=== PATIENT | female | born 1930 | race Caucasian/White ===

== ENCOUNTER 2016-11-06 05:39 | Inpatient (IN) | payer MEDICARE ==
[2016-11-04 14:45] VITALS: BP 167/77
[~2016-11-06] VITALS: Ht 154.9 cm; Wt 70.5 kg
[~2016-11-06 05:39] MED LIST: ACET-709 PO; ASPI-496 PO; CLON0.1T PO; FISH OIL PO; FLAX1CAP PO; FLUO60TA PO; FLUT16SP NS; FURO20TA3 PO; GABA300C10 PO; GLUC-88 PO; LEVO137T2 PO; LOSA1TAB16 PO; METH500T7 PO; MULT-516 PO; NAPR220C PO; OMEP40CA6 PO; ONDA4TAB7 PO; POTA10TA12 PO; PROBIOTIC PO; SYNTHROID PO; VITAMIN D3 PO; ZOLP10TA5 PO
[2016-11-06] MEDS ORDERED: BACITRACIN OINT 500U/GM, 15 GM ONE (06:42)
[2016-11-06] MEDS ORDERED: BUPIVACAINE/PF 0.5% ONE (06:43)
[2016-11-06] MEDS ORDERED: THROMBIN 5,000 UNIT VIAL TP ONE (06:43)
[2016-11-06] MEDS ORDERED: BACITRACIN 50,000 UNIT ONE (06:43)
[2016-11-06] MEDS ORDERED: EPINEPHRINE 1 MG/ML, 1ML ONE (06:43)
[2016-11-06] MEDS ORDERED: LACTATED RINGERS 1,000 ML IV SCH (06:45)
[2016-11-06] MEDS ORDERED: LIDOCAINE 1%, 2ML SQ PRN (07:00)
[2016-11-06] MEDS ORDERED: ACET-1600 PO (07:08)
[2016-11-06] MEDS ORDERED: FENTANYL PF 250 MCG/5ML ONE (07:30)
[2016-11-06] MEDS ORDERED: NITROGLYCERIN SINGLE TAB 0.4 MG SL ONE (08:30)
[2016-11-06] MEDS: NITROGLYCERIN 0.4 MG BOTTLE (25 TABS) SL STA ×2 (08:37→08:40)
[2016-11-06] MEDS: NITROGLYCERIN 0.4 MG BOTTLE (25 TABS) SL PRN ×3 (09:16→13:40)
[2016-11-06 11:34] LABS: BLOOD UREA NITROGEN 14 mg/dL (7-18)
[2016-11-06 11:38] LABS: IS PT STATUS REG ER OR PRE ER? YES
[2016-11-06] MEDS ORDERED: NITROGLYCERIN 0.4 MG/SPRAY SL PRN (12:30)
[2016-11-06] MEDS ORDERED: NITROGLYCERIN 0.4 MG BOTTLE (25 TABS) SL PRN (12:30)
[2016-11-06] MEDS ORDERED: LEVO112T2 PO (12:56)
[2016-11-06] MEDS ORDERED: METO25TA35 PO (12:57)
[2016-11-06] MEDS ORDERED: morphine SULFATE 10 MG/ML, 1ML IVPush PRN (13:00)
[2016-11-06] MEDS ORDERED: DOCUSATE 100 MG CAPSULE PO PRN (13:00)
[2016-11-06] MEDS ORDERED: ONDANSETRON 2MG/ML, 2ML IVPush PRN (13:00)
[2016-11-06] MEDS ORDERED: ENOXAPARIN 40 MG/0.4 ML SQ SCH (13:00)
[2016-11-06] MEDS ORDERED: BISACODYL 10 MG SUPP PR PRN (13:00)
[2016-11-06] MEDS ORDERED: POLYETHYLENE GLYCOL 17 GM PACKET PO PRN (13:00)
[2016-11-06] MEDS ORDERED: ENALAPRILAT 1.25 MG/ML, 2ML IVPush PRN ×2 (13:00→19:00)
[2016-11-06 13:08] VITALS: BP 194/74
[2016-11-06] MEDS ORDERED: MAGNESIUM SULFATE PMX 2GM/50ML 50 ML IV ONE (13:30)
[2016-11-06 13:41] VITALS: BP 170/78
[2016-11-06 14:06] VITALS: BP 188/74
[2016-11-06] MEDS ORDERED: hydrALAzine 20 MG/ML, 1ML IV PRN (14:30)
[2016-11-06] MEDS: methylPREDNISolone SOD SUCC 125 MG/2 ML IVPush SCH ×2 (15:08→20:37)
[2016-11-06] MEDS: DIPHENHYDRAMINE 50 MG/ML, 1ML IVPush PRN (15:09)
[2016-11-06] MEDS ORDERED: OMNIPAQUE 350 MG/ML, 75ML BOTTLE ONE (15:49)
[2016-11-06] MEDS ORDERED: METHOCARBAMOL 500 MG TABLET PO PRN (16:00)
[2016-11-06] MEDS ORDERED: METHOCARBAMOL 500 MG TABLET PO SCH ×2 (16:00)
[2016-11-06 16:30] VITALS: BP 148/88
[2016-11-06 19:28] VITALS: BP 145/54
[2016-11-06] MEDS: OMEPRAZOLE 20 MG CAPSULE.DR PO SCH (20:37)
[2016-11-06] MEDS: METOPROLOL TARTRATE 25 MG TABLET PO SCH (20:38)
[2016-11-06] MEDS ORDERED: TEMPLATE NON-FORMULARY MED. (Losartan/Hydrochlorothiazide** (Losartan-Hctz 50-12.5 Mg Tab PO SCH (21:00)
[2016-11-06] MEDS ORDERED: GABAPENTIN 300 MG CAPSULE PO SCH (21:00)
[2016-11-06 21:13] LABS: IS PT STATUS REG ER OR PRE ER? NO
[2016-11-07] MEDS: methylPREDNISolone SOD SUCC 125 MG/2 ML IVPush SCH ×2 (01:42→11:15)
[2016-11-07 03:07] VITALS: BP 164/73
[2016-11-07 05:48] LABS: BLOOD UREA NITROGEN 18 mg/dL (7-18)
[2016-11-07 05:52] LABS: ASPARTATE AMINO TRANSFERASE 15 U/L (15-37)
[2016-11-07] MEDS ORDERED: LEVOTHYROXINE 112 MCG TABLET PO SCH (06:00)
[2016-11-07 06:39] LABS: IS PT STATUS REG ER OR PRE ER? NO
[2016-11-07] MEDS: DIPHENHYDRAMINE 50 MG/ML, 1ML IVPush PRN (06:39)
[2016-11-07] MEDS ORDERED: REGADENOSON 0.4 MG/5 ML SYRINGE ONE (07:48)
[2016-11-07 08:21] VITALS: BP 159/70
[2016-11-07] MEDS ORDERED: HYDROCHLOROTHIAZIDE 12.5 MG CAPSULE PO SCH (09:00)
[2016-11-07] MEDS ORDERED: FLUOXETINE 20 MG CAPSULE PO SCH (09:00)
[2016-11-07] MEDS ORDERED: FLUTICASONE NASAL SPRAY 16GM NAS SCH (09:00)
[2016-11-07] MEDS ORDERED: LOSARTAN 50MG TABLET PO SCH (09:00)
[2016-11-07] MEDS ORDERED: SENNA/DOCUSATE TABLET PO SCH (09:00)
[2016-11-07 11:00] VITALS: BP 126/73
[2016-11-07] MEDS: OMEPRAZOLE 20 MG CAPSULE.DR PO SCH (11:14)
[2016-11-07] MEDS: METOPROLOL TARTRATE 25 MG TABLET PO SCH (11:14)
[2016-11-07] MEDS ORDERED: ENOXAPARIN 30 MG/0.3 ML SQ SCH (13:00)
== END 2016-11-07 19:00 | disposition home or self-care (01) | DRG 292 ==
LOC: OUT 05:39 → SUATTDRO 10:14 → ORIP 10:23 → 5SO 10:32
PROVIDERS: ADMIT Internal Medicine; ATTEND Internal Medicine
DX: I11.0 Hypertensive heart disease with heart failure (principal); J98.11 Atelectasis; Q21.1 Atrial septal defect; R07.89 Other chest pain; I50.32 Chronic diastolic (congestive) heart failure; I45.81 Long QT syndrome; M19.90 Unspecified osteoarthritis, unspecified site; M48.06 Spinal stenosis, lumbar region; E03.9 Hypothyroidism, unspecified; F32.9 Major depressive disorder, single episode, unspecified; F41.9 Anxiety disorder, unspecified; G47.33 Obstructive sleep apnea (adult) (pediatric); G62.9 Polyneuropathy, unspecified; G89.29 Other chronic pain; I08.0 Rheumatic disorders of both mitral and aortic valves; I44.7 Left bundle-branch block, unspecified; M88.9 Osteitis deformans of unspecified bone; Z53.9 Procedure and treatment not carried out, unspecified reason; M54.16 Radiculopathy, lumbar region
CPT/HCPCS: 36415; 71010; 71260; 78452; 80048; 80053; 80061; 83690; 83735; 84100; 84443; 84484; 85025; 87324; 93005; 93017; 93306; J0171; J1650; J2405; J2785; J3010; J3490; Q9967; A9502; C9898; J1200; J2270; J2930; J3475; J7120

== ENCOUNTER 2016-11-12 10:07 | Inpatient (IN) | payer MEDICARE ==
[~2016-11-12] VITALS: Ht 154.9 cm; Wt 71.2 kg
[~2016-11-12 10:07] MED LIST changes: +ACET-1600 PO; +LEVO112T2 PO; +METO25TA35 PO
[2016-11-12] MEDS ORDERED: BACITRACIN 50,000 UNIT ONE (10:33)
[2016-11-12] MEDS ORDERED: THROMBIN 5,000 UNIT VIAL TP ONE (10:33)
[2016-11-12] MEDS ORDERED: BACITRACIN OINT 500U/GM, 15 GM ONE (10:33)
[2016-11-12] MEDS ORDERED: BUPIVACAINE/PF-EPI 0.5% 1:200K ONE ×2 (10:33→14:28)
[2016-11-12] MEDS ORDERED: LACTATED RINGERS 1,000 ML IV SCH (10:52)
[2016-11-12 11:26] VITALS: BP 138/75
[2016-11-12] MEDS ORDERED: FENTANYL PF 250 MCG/5ML ONE (13:15)
[2016-11-12] MEDS ORDERED: MIDAZOLAM 1 MG/ML, 2ML ONE (13:15)
[2016-11-12] MEDS ORDERED: EPHEDRINE 50 MG/ML, 1ML IVPush PRN (14:30)
[2016-11-12] MEDS ORDERED: ALBUTEROL/IPRATROPIUM 2.5MG/0.5MG, 3 ML NPPB PRN (14:30)
[2016-11-12] MEDS ORDERED: MEPERIDINE/PF 25MG/0.5ML IVPush PRN (14:30)
[2016-11-12] MEDS ORDERED: OXYcodone 5 MG/5 ML ORAL.SOL UDC PO PRN (14:30)
[2016-11-12] MEDS ORDERED: ONDANSETRON 2MG/ML, 2ML IVPush PRN (14:30)
[2016-11-12] MEDS ORDERED: FENTANYL PF 100 MCG/2ML IV PRN (14:30)
[2016-11-12] MEDS ORDERED: PROMETHAZINE 25 MG/ML, 1ML IV PRN (14:30)
[2016-11-12] MEDS ORDERED: MIDAZOLAM 1 MG/ML, 2ML IV PRN (14:30)
[2016-11-12] MEDS ORDERED: ACETAMINOPHEN 325 MG TABLET PO PRN (14:30)
[2016-11-12] MEDS ORDERED: FUROSEMIDE 20 MG TABLET PO PRN (16:30)
[2016-11-12] MEDS ORDERED: POTASSIUM CHLORIDE 10 MEQ TABLET.ER PO PRN (16:30)
[2016-11-12] MEDS ORDERED: SENNA/DOCUSATE TABLET PO PRN (16:30)
[2016-11-12] MEDS ORDERED: CODEINE SULFATE 30 MG TABLET PO PRN (16:30)
[2016-11-12] MEDS ORDERED: LABETALOL 5MG/ML, 20ML IVPush PRN (16:30)
[2016-11-12] MEDS ORDERED: PHARMACY MAY ADJ FOR RENAL FX MC PRN (16:30)
[2016-11-12] MEDS: LABETALOL 5MG/ML, 20ML IV PRN ×2 (16:44→17:00)
[2016-11-12] MEDS ORDERED: OXYcodone 5 MG/5 ML ORAL.SOL UDC ONE (16:47)
[2016-11-12] MEDS ORDERED: HYDROmorphone 1 MG/ML, 1ML ONE (16:52)
[2016-11-12] MEDS: HYDROmorphone 1 MG/ML, 1ML IV PRN ×2 (16:57→17:15)
[2016-11-12] MEDS: hydrALAzine 20 MG/ML, 1ML IV PRN ×2 (17:00→17:21)
[2016-11-12] MEDS ORDERED: hydrALAzine 20 MG/ML, 1ML ONE (17:17)
[2016-11-12] MEDS ORDERED: CEFAZOLIN PMX 1GM/50ML 50 ML IVPB SCH (18:30)
[2016-11-12 18:45] VITALS: BP 134/69
[2016-11-12] MEDS: METOPROLOL TARTRATE 25 MG TABLET PO SCH (20:43)
[2016-11-12] MEDS: GABAPENTIN 300 MG CAPSULE PO SCH (20:43)
[2016-11-12] MEDS: FLUOXETINE 20 MG CAPSULE PO SCH (20:44)
[2016-11-12] MEDS ORDERED: TEMPLATE NON-FORMULARY MED. (Losartan/Hydrochlorothiazide** (Losartan-Hctz 50-12.5 Mg Tab PO SCH (21:00)
[2016-11-12] MEDS: SODIUM CHLORIDE FLUSH 10ML SYR IVF SCH (21:00)
[2016-11-12] MEDS: CEFAZOLIN PMX 1GM/50ML 50 ML IVPB SCH (21:30)
[2016-11-12] MEDS: NS + 20MEQ KCL 1,000 ML IV SCH (21:34)
[2016-11-12] MEDS: METHOCARBAMOL 500 MG TABLET PO PRN (22:46)
[2016-11-12] MEDS: ONDANSETRON 4 MG TABLET PO PRN (23:21)
[2016-11-12] MEDS: HYDROcodone/APAP 5/325 TABLET PO PRN (23:21)
[2016-11-13] VITALS: BP 122/55
[2016-11-13] MEDS: HYDROmorphone 1 MG/ML, 1ML IVPush PRN ×4 (01:33→22:34)
[2016-11-13] MEDS: CEFAZOLIN PMX 1GM/50ML 50 ML IVPB SCH (05:30)
[2016-11-13] MEDS: LEVOTHYROXINE 112 MCG TABLET PO SCH (08:30)
[2016-11-13] MEDS: SODIUM CHLORIDE FLUSH 10ML SYR IVF SCH ×2 (08:30→20:06)
[2016-11-13] MEDS ORDERED: DIPHENHYDRAMINE 12.5MG/5ML, 10ML UDC PO PRN (08:30)
[2016-11-13 08:35] VITALS: BP 100/57
[2016-11-13] MEDS: FLUTICASONE NASAL SPRAY 16GM NAS SCH (08:42)
[2016-11-13] MEDS: METOPROLOL TARTRATE 25 MG TABLET PO SCH ×2 (08:42→20:07)
[2016-11-13] MEDS: MULTIVITAMIN 1 TABLET PO SCH (08:43)
[2016-11-13] MEDS: OMEPRAZOLE 20 MG CAPSULE.DR PO SCH (08:43)
[2016-11-13] MEDS: HYDROcodone/APAP 5/325 TABLET PO PRN ×2 (10:49→17:02)
[2016-11-13] MEDS: METHOCARBAMOL 500 MG TABLET PO PRN ×2 (10:49→20:07)
[2016-11-13] MEDS: NS + 20MEQ KCL 1,000 ML IV SCH (12:28)
[2016-11-13] MEDS ORDERED: ONDANSETRON 2MG/ML, 2ML ONE (13:36)
[2016-11-13] MEDS ORDERED: PROPOFOL 10 MG/ML, 50ML ONE (13:36)
[2016-11-13] MEDS ORDERED: DEXAMETHASONE 4 MG/ML, 1ML ONE (13:36)
[2016-11-13] MEDS ORDERED: SUCCINYLCHOLINE 20 MG/ML, 10ML ONE (13:36)
[2016-11-13] MEDS ORDERED: PHENYLEPHRINE 10 MG/ML ONE (13:36)
[2016-11-13] MEDS ORDERED: CEFAZOLIN 1,000 MG ONE (13:36)
[2016-11-13 15:54] VITALS: BP 119/66
[2016-11-13] MEDS: ONDANSETRON 4 MG TABLET PO PRN (17:02)
[2016-11-13 19:47] VITALS: BP 123/65
[2016-11-13] MEDS: GABAPENTIN 300 MG CAPSULE PO SCH (20:07)
[2016-11-13] MEDS: FLUOXETINE 20 MG CAPSULE PO SCH (20:07)
[2016-11-14] MEDS: NS + 20MEQ KCL 1,000 ML IV SCH ×2 (01:25→15:28)
[2016-11-14 02:02] VITALS: BP 133/62
[2016-11-14] MEDS: HYDROmorphone 1 MG/ML, 1ML IVPush PRN (04:39)
[2016-11-14 05:05] LABS: BLOOD UREA NITROGEN 16 mg/dL (7-18)
[2016-11-14] MEDS: METHOCARBAMOL 500 MG TABLET PO PRN (05:44)
[2016-11-14] MEDS: LEVOTHYROXINE 112 MCG TABLET PO SCH (05:45)
[2016-11-14] MEDS ORDERED: SENN1TAB7 PO (07:42)
[2016-11-14] MEDS ORDERED: HYDR-3240 PO (07:42)
[2016-11-14 08:02] VITALS: BP 158/73
[2016-11-14] MEDS: MULTIVITAMIN 1 TABLET PO SCH (08:05)
[2016-11-14] MEDS: METOPROLOL TARTRATE 25 MG TABLET PO SCH ×2 (08:06→21:48)
[2016-11-14] MEDS: OMEPRAZOLE 20 MG CAPSULE.DR PO SCH (08:06)
[2016-11-14] MEDS: HYDROcodone/APAP 5/325 TABLET PO PRN ×4 (08:07→21:52)
[2016-11-14] MEDS: MAGNESIUM HYDROXIDE 8%, 30ML UDC PO PRN (08:10)
[2016-11-14] MEDS: SODIUM CHLORIDE FLUSH 10ML SYR IVF SCH ×2 (09:00→21:50)
[2016-11-14] MEDS: FLUTICASONE NASAL SPRAY 16GM NAS SCH (09:00)
[2016-11-14] MEDS: BISACODYL 10 MG SUPP PR PRN (10:34)
[2016-11-14 15:42] VITALS: BP 133/63
[2016-11-14] MEDS: FLUOXETINE 20 MG CAPSULE PO SCH (21:48)
[2016-11-14] MEDS: GABAPENTIN 300 MG CAPSULE PO SCH (21:48)
[2016-11-14 21:53] VITALS: BP 141/62
[2016-11-15] MEDS: NS + 20MEQ KCL 1,000 ML IV SCH ×3 (00:30→23:00)
[2016-11-15] MEDS: HYDROcodone/APAP 5/325 TABLET PO PRN ×5 (02:14→20:54)
[2016-11-15 03:25] VITALS: BP 109/49
[2016-11-15] MEDS: LEVOTHYROXINE 112 MCG TABLET PO SCH (06:00)
[2016-11-15 07:39] VITALS: BP 166/60
[2016-11-15] MEDS: FLUTICASONE NASAL SPRAY 16GM NAS SCH (09:00)
[2016-11-15] MEDS: MULTIVITAMIN 1 TABLET PO SCH (09:00)
[2016-11-15] MEDS: SODIUM CHLORIDE FLUSH 10ML SYR IVF SCH ×2 (09:00→20:54)
[2016-11-15] MEDS: OMEPRAZOLE 20 MG CAPSULE.DR PO SCH (10:01)
[2016-11-15] MEDS: METOPROLOL TARTRATE 25 MG TABLET PO SCH ×2 (10:02→20:53)
[2016-11-15 13:44] VITALS: BP 132/64
[2016-11-15] MEDS: METHOCARBAMOL 500 MG TABLET PO PRN (13:56)
[2016-11-15 19:48] VITALS: BP 154/62
[2016-11-15] MEDS: GABAPENTIN 300 MG CAPSULE PO SCH (20:53)
[2016-11-15] MEDS: FLUOXETINE 20 MG CAPSULE PO SCH (20:54)
[2016-11-16 01:25] VITALS: BP 139/59
[2016-11-16] MEDS: LEVOTHYROXINE 112 MCG TABLET PO SCH (06:00)
[2016-11-16] MEDS: HYDROcodone/APAP 5/325 TABLET PO PRN ×2 (06:35→10:51)
[2016-11-16] MEDS: NS + 20MEQ KCL 1,000 ML IV SCH (06:38)
[2016-11-16 07:31] VITALS: BP 147/68
[2016-11-16] MEDS: OMEPRAZOLE 20 MG CAPSULE.DR PO SCH (08:02)
[2016-11-16] MEDS: SODIUM CHLORIDE FLUSH 10ML SYR IVF SCH (08:02)
[2016-11-16] MEDS: MULTIVITAMIN 1 TABLET PO SCH (08:02)
[2016-11-16] MEDS: METOPROLOL TARTRATE 25 MG TABLET PO SCH (08:02)
[2016-11-16] MEDS: FLUTICASONE NASAL SPRAY 16GM NAS SCH (08:03)
[2016-11-16] MEDS: MAGNESIUM HYDROXIDE 8%, 30ML UDC PO PRN (08:05)
[2016-11-16] MEDS: BISACODYL 10 MG SUPP PR PRN (10:43)
[2016-11-16 13:00] VITALS: BP 150/77
== END 2016-11-16 13:15 | DRG 519 ==
LOC: OUT 10:07 → ORIP 16:06 → 4NOR 17:50
PROVIDERS: ADMIT Neurological Surgery; ATTEND Neurological Surgery
PROC: 00QT0ZZ Repair Spinal Meninges, Open Approach (ICD-10-PCS; 2016-11-12)
PROC: 00NY0ZZ Release Lumbar Spinal Cord, Open Approach (ICD-10-PCS; principal; 2016-11-12 14:00)
DX: M48.06 Spinal stenosis, lumbar region (principal); G96.11 Dural tear; I10 Essential (primary) hypertension; M81.0 Age-related osteoporosis without current pathological fracture; F41.9 Anxiety disorder, unspecified; R07.9 Chest pain, unspecified; M06.9 Rheumatoid arthritis, unspecified; G47.33 Obstructive sleep apnea (adult) (pediatric); E03.9 Hypothyroidism, unspecified; I08.0 Rheumatic disorders of both mitral and aortic valves; I44.7 Left bundle-branch block, unspecified; Z85.828 Personal history of other malignant neoplasm of skin; Z88.1 Allergy status to other antibiotic agents; Z88.8 Allergy status to other drugs, medicaments and biological substances; Z83.3 Family history of diabetes mellitus; Z82.49 Family history of ischemic heart disease and other diseases of the circulatory system; Z98.42 Cataract extraction status, left eye; Z79.82 Long term (current) use of aspirin; Z91.041 Radiographic dye allergy status
CPT/HCPCS: 36415; 72100; 80048; J0690; J1100; J1170; J2250; J2405; J2704; J3010; J3480; Q0162; J0330; J0360; J2370; J7120

== ENCOUNTER 2016-11-19 11:36 | Inpatient (IN) | payer MEDICARE ==
[~2016-11-19] VITALS: Ht 154.9 cm; Wt 74.9 kg
[~2016-11-19 11:36] MED LIST changes: +HYDR-3240 PO; +SENN1TAB7 PO
[2016-11-19] MEDS ORDERED: BISACODYL 10 MG SUPP PR PRN (12:00)
[2016-11-19] MEDS ORDERED: SENNA/DOCUSATE TABLET PO PRN ×2 (12:00)
[2016-11-19] MEDS ORDERED: PHARMACY MAY ADJ FOR RENAL FX MC PRN (12:00)
[2016-11-19] MEDS ORDERED: DIPHENHYDRAMINE 12.5MG/5ML, 10ML UDC PO PRN (12:00)
[2016-11-19] MEDS ORDERED: FUROSEMIDE 20 MG TABLET PO PRN (12:00)
[2016-11-19] MEDS ORDERED: PLEASE ENTER HEIGHT AND WEIGHT MC SCH (12:30)
[2016-11-19 12:40] VITALS: BP 140/68
[2016-11-19] MEDS ORDERED: CEFAZOLIN PMX 2GM/50ML 50 ML IVPB SCH (13:30)
[2016-11-19] MEDS ORDERED: ONDANSETRON 2MG/ML, 2ML ONE (13:53)
[2016-11-19] MEDS: HYDROcodone/APAP 5/325 TABLET PO PRN ×2 (13:55→23:55)
[2016-11-19] MEDS: ONDANSETRON 2MG/ML, 2ML IVPush PRN ×2 (14:00→23:55)
[2016-11-19 14:10] VITALS: BP 123/70
[2016-11-19] MEDS ORDERED: FENTANYL PF 100 MCG/2ML ONE (14:25)
[2016-11-19 14:28] LABS: HEMATOCRIT 30.5 % (34.6-47.8); WHITE BLOOD COUNT 8.3 x10^3/uL (3.4-10)
[2016-11-19] MEDS ORDERED: DIPHENHYDRAMINE 50 MG/ML, 1ML ONE (14:56)
[2016-11-19] MEDS ORDERED: methylPREDNISolone SOD SUCC 125 MG/2 ML ONE (14:57)
[2016-11-19] MEDS: FLUOXETINE 20 MG CAPSULE PO SCH (20:57)
[2016-11-19] MEDS: SODIUM CHLORIDE FLUSH 10ML SYR IVF SCH (20:57)
[2016-11-19] MEDS: METOPROLOL TARTRATE 25 MG TABLET PO SCH (20:57)
[2016-11-19] MEDS: GABAPENTIN 300 MG CAPSULE PO SCH (20:58)
[2016-11-19] MEDS ORDERED: LOSARTAN 50MG TABLET PO SCH (21:00)
[2016-11-19] MEDS ORDERED: HYDROCHLOROTHIAZIDE 12.5 MG CAPSULE PO SCH (21:00)
[2016-11-20 04:00] VITALS: BP 162/61
[2016-11-20] MEDS: HYDROcodone/APAP 5/325 TABLET PO PRN ×5 (05:04→21:58)
[2016-11-20 05:21] LABS: HEMATOCRIT 28.2 % (34.6-47.8); HEMOGLOBIN 9.5 g/dL (11.7-16.4); WHITE BLOOD COUNT 6.4 x10^3/uL (3.4-10)
[2016-11-20 05:29] LABS: BLOOD UREA NITROGEN 12 mg/dL (7-18)
[2016-11-20] MEDS: LEVOTHYROXINE 112 MCG TABLET PO SCH (06:07)
[2016-11-20] MEDS: OMEPRAZOLE 20 MG CAPSULE.DR PO SCH (06:42)
[2016-11-20] MEDS: ONDANSETRON 2MG/ML, 2ML IVPush PRN ×2 (10:16→20:15)
[2016-11-20] MEDS: LOSARTAN 50MG TABLET PO SCH ×2 (10:19→20:44)
[2016-11-20] MEDS: HYDROCHLOROTHIAZIDE 12.5 MG CAPSULE PO SCH ×2 (10:20→20:44)
[2016-11-20] MEDS: METOPROLOL TARTRATE 25 MG TABLET PO SCH ×2 (10:20→20:44)
[2016-11-20] MEDS: MULTIVITAMIN 1 TABLET PO SCH (10:20)
[2016-11-20] MEDS: SODIUM CHLORIDE FLUSH 10ML SYR IVF SCH ×2 (10:21→20:15)
[2016-11-20] MEDS: FLUTICASONE NASAL SPRAY 16GM NAS SCH (13:41)
[2016-11-20] MEDS: GABAPENTIN 300 MG CAPSULE PO SCH (20:43)
[2016-11-20] MEDS: FLUOXETINE 20 MG CAPSULE PO SCH (20:44)
[2016-11-21] MEDS: HYDROcodone/APAP 5/325 TABLET PO PRN ×5 (01:28→22:41)
[2016-11-21 04:00] VITALS: BP 140/86
[2016-11-21 04:49] LABS: HEMATOCRIT 29.4 % (34.6-47.8); HEMOGLOBIN 9.8 g/dL (11.7-16.4); WHITE BLOOD COUNT 12.5 x10^3/uL (3.4-10)
[2016-11-21 05:00] LABS: BLOOD UREA NITROGEN 18 mg/dL (7-18)
[2016-11-21] MEDS: LEVOTHYROXINE 112 MCG TABLET PO SCH (06:01)
[2016-11-21] MEDS: ONDANSETRON 4 MG TABLET PO PRN (06:07)
[2016-11-21] MEDS: METHOCARBAMOL 500 MG TABLET PO PRN ×3 (06:07→21:25)
[2016-11-21] MEDS: OMEPRAZOLE 20 MG CAPSULE.DR PO SCH (07:24)
[2016-11-21] MEDS: HYDROCHLOROTHIAZIDE 12.5 MG CAPSULE PO SCH (08:55)
[2016-11-21] MEDS: SODIUM CHLORIDE FLUSH 10ML SYR IVF SCH ×2 (08:55→19:42)
[2016-11-21] MEDS: LOSARTAN 50MG TABLET PO SCH ×2 (08:56→22:33)
[2016-11-21] MEDS: MULTIVITAMIN 1 TABLET PO SCH (08:56)
[2016-11-21] MEDS ORDERED: ENOXAPARIN 40 MG/0.4 ML SQ SCH (09:00)
[2016-11-21] MEDS: FLUTICASONE NASAL SPRAY 16GM NAS SCH (10:54)
[2016-11-21] MEDS: METOPROLOL TARTRATE 25 MG TABLET PO SCH ×2 (10:58→21:27)
[2016-11-21] MEDS: POTASSIUM CHLORIDE 20 MEQ TAB.ER.PRT PO SCH ×2 (10:58→22:33)
[2016-11-21] MEDS: ONDANSETRON 2MG/ML, 2ML IVPush PRN ×2 (14:03→18:25)
[2016-11-21] MEDS ORDERED: ENALAPRILAT 1.25 MG/ML, 2ML IV PRN ×2 (15:30→19:30)
[2016-11-21] MEDS ORDERED: NS + 20MEQ KCL 1,000 ML IV SCH ×2 (16:30→22:30)
[2016-11-21 17:53] LABS: IS PT STATUS REG ER OR PRE ER? NO
[2016-11-21 20:21] LABS: PATH.CAST-FLAG NOT PRESENT; SPERM-FLAG NOT PRESENT; SRC-FLAG NOT PRESENT; XTAL-FLAG NOT PRESENT; YLC-FLAG NOT PRESENT
[2016-11-21] MEDS: hydrALAzine 20 MG/ML, 1ML IV PRN (20:25)
[2016-11-21] MEDS ORDERED: AMLODIPINE 5 MG TABLET PO ONE (20:30)
[2016-11-21] MEDS: PROMETHAZINE 25 MG/ML, 1ML IM PRN (21:24)
[2016-11-21] MEDS: GABAPENTIN 300 MG CAPSULE PO SCH (21:26)
[2016-11-21] MEDS: FLUOXETINE 20 MG CAPSULE PO SCH (21:27)
[2016-11-21] MEDS ORDERED: methylPREDNISolone SOD SUCC 40 MG/ML IV ONE ×3 (22:00→22:30)
[2016-11-21] MEDS ORDERED: methylPREDNISolone SOD SUCC 40 MG/ML IV SCH (22:00)
[2016-11-21] MEDS ORDERED: FUROSEMIDE 20 MG/2 ML IV ONE (22:00)
[2016-11-22] MEDS: CEFTRIAXONE PMX 1GM/50ML 50 ML IV SCH (00:34)
[2016-11-22] MEDS ORDERED: POTASSIUM CHLORIDE 20 MEQ TAB.ER.PRT PO ONE (02:30)
[2016-11-22 04:00] VITALS: BP 144/68
[2016-11-22] MEDS ORDERED: methylPREDNISolone SOD SUCC 40 MG/ML IV ONE ×2 (04:00→10:00)
[2016-11-22 04:26] LABS: HEMOGLOBIN 11.3 g/dL (11.7-16.4); WHITE BLOOD COUNT 11.8 x10^3/uL (3.4-10)
[2016-11-22 04:36] LABS: BLOOD UREA NITROGEN 12 mg/dL (7-18)
[2016-11-22] MEDS: LEVOTHYROXINE 112 MCG TABLET PO SCH (05:54)
[2016-11-22] MEDS: OMEPRAZOLE 20 MG CAPSULE.DR PO SCH (07:59)
[2016-11-22] MEDS: FLUTICASONE NASAL SPRAY 16GM NAS SCH (08:34)
[2016-11-22] MEDS: LOSARTAN 50MG TABLET PO SCH ×2 (08:35→22:17)
[2016-11-22] MEDS: METOPROLOL TARTRATE 25 MG TABLET PO SCH ×2 (08:36→22:17)
[2016-11-22] MEDS: POTASSIUM CHLORIDE 20 MEQ TAB.ER.PRT PO SCH ×2 (08:36→22:00)
[2016-11-22] MEDS: AMLODIPINE 5 MG TABLET PO SCH (08:37)
[2016-11-22] MEDS: MAGNESIUM HYDROXIDE 8%, 30ML UDC PO PRN (08:38)
[2016-11-22] MEDS: HYDROcodone/APAP 5/325 TABLET PO PRN ×2 (08:38→17:29)
[2016-11-22] MEDS: MULTIVITAMIN 1 TABLET PO SCH (08:38)
[2016-11-22] MEDS: SODIUM CHLORIDE FLUSH 10ML SYR IVF SCH ×2 (08:45→21:57)
[2016-11-22] MEDS ORDERED: DIPHENHYDRAMINE 50 MG/ML, 1ML IVPush ONE (10:00)
[2016-11-22] MEDS: hydrALAzine 20 MG/ML, 1ML IV PRN (17:10)
[2016-11-22] MEDS: FLUOXETINE 20 MG CAPSULE PO SCH (21:57)
[2016-11-22] MEDS: GABAPENTIN 300 MG CAPSULE PO SCH (22:00)
[2016-11-22] MEDS: METHOCARBAMOL 500 MG TABLET PO PRN (22:05)
[2016-11-23] MEDS: ONDANSETRON 4 MG TABLET PO PRN (00:56)
[2016-11-23] MEDS: HYDROcodone/APAP 5/325 TABLET PO PRN ×3 (00:58→05:18)
[2016-11-23] MEDS: CEFTRIAXONE PMX 1GM/50ML 50 ML IV SCH (01:10)
[2016-11-23] MEDS: PROMETHAZINE 25 MG/ML, 1ML IM PRN (01:13)
[2016-11-23 04:18] LABS: HEMATOCRIT 33.2 % (34.6-47.8); HEMOGLOBIN 11.1 g/dL (11.7-16.4); WHITE BLOOD COUNT 11.9 x10^3/uL (3.4-10)
[2016-11-23 04:29] LABS: BLOOD UREA NITROGEN 19 mg/dL (7-18)
[2016-11-23 04:44] VITALS: BP 97/46
[2016-11-23] MEDS: LEVOTHYROXINE 112 MCG TABLET PO SCH (06:16)
[2016-11-23] MEDS: METHOCARBAMOL 500 MG TABLET PO PRN ×3 (06:16→21:30)
[2016-11-23] MEDS ORDERED: HYDROcodone/APAP 5/325 TABLET ONE (09:02)
[2016-11-23] MEDS: OMEPRAZOLE 20 MG CAPSULE.DR PO SCH (09:02)
[2016-11-23] MEDS: SODIUM CHLORIDE FLUSH 10ML SYR IVF SCH ×2 (09:02→21:29)
[2016-11-23] MEDS: FLUTICASONE NASAL SPRAY 16GM NAS SCH (09:02)
[2016-11-23] MEDS ORDERED: HYDROcodone/APAP 10/325 MG TABLET ONE (09:02)
[2016-11-23] MEDS: POTASSIUM CHLORIDE 20 MEQ TAB.ER.PRT PO SCH ×2 (09:03→21:29)
[2016-11-23] MEDS: AMLODIPINE 5 MG TABLET PO SCH (09:05)
[2016-11-23] MEDS: MULTIVITAMIN 1 TABLET PO SCH (09:05)
[2016-11-23] MEDS: METOPROLOL TARTRATE 25 MG TABLET PO SCH ×2 (09:06→21:00)
[2016-11-23] MEDS ORDERED: HYDROcodone/APAP 5/325 TABLET PO ONE (09:30)
[2016-11-23] MEDS ORDERED: HYDROcodone/APAP 10/325 MG TABLET PO ONE (09:30)
[2016-11-23] MEDS: LOSARTAN 50MG TABLET PO SCH ×2 (11:22→21:29)
[2016-11-23] MEDS ORDERED: GABAPENTIN 300 MG CAPSULE PO ONE (11:30)
[2016-11-23] MEDS: GABAPENTIN 300 MG CAPSULE PO SCH ×2 (17:35→21:29)
[2016-11-23] MEDS: FLUOXETINE 20 MG CAPSULE PO SCH (21:29)
[2016-11-24] MEDS: CEFTRIAXONE PMX 1GM/50ML 50 ML IV SCH (00:48)
[2016-11-24 05:26] VITALS: BP 154/64
[2016-11-24 05:48] LABS: HEMATOCRIT 34.2 % (34.6-47.8); HEMOGLOBIN 11.3 g/dL (11.7-16.4); WHITE BLOOD COUNT 9.5 x10^3/uL (3.4-10)
[2016-11-24] MEDS: METHOCARBAMOL 500 MG TABLET PO PRN ×3 (05:48→21:01)
[2016-11-24 05:59] LABS: BLOOD UREA NITROGEN 18 mg/dL (7-18)
[2016-11-24] MEDS: LEVOTHYROXINE 112 MCG TABLET PO SCH (06:22)
[2016-11-24] MEDS: OMEPRAZOLE 20 MG CAPSULE.DR PO SCH (08:17)
[2016-11-24] MEDS: AMLODIPINE 5 MG TABLET PO SCH (08:18)
[2016-11-24] MEDS: GABAPENTIN 300 MG CAPSULE PO SCH ×3 (08:18→21:01)
[2016-11-24] MEDS: FLUTICASONE NASAL SPRAY 16GM NAS SCH (08:18)
[2016-11-24] MEDS: FLUOXETINE 20 MG CAPSULE PO SCH (08:19)
[2016-11-24] MEDS: MULTIVITAMIN 1 TABLET PO SCH (08:19)
[2016-11-24] MEDS: LOSARTAN 50MG TABLET PO SCH ×2 (08:21→21:01)
[2016-11-24] MEDS: SODIUM CHLORIDE FLUSH 10ML SYR IVF SCH ×2 (08:21→21:01)
[2016-11-24] MEDS ORDERED: MEROPENEM 1 GM in SODIUM CHLORIDE 0.9% 50 ML IV SCH (09:00)
[2016-11-24] MEDS: MAGNESIUM HYDROXIDE 8%, 30ML UDC PO PRN (12:58)
[2016-11-24] MEDS: MEROPENEM 1 GM in SODIUM CHLORIDE 0.9% 100 ML IV SCH (17:19)
[2016-11-25] MEDS: MEROPENEM 1 GM in SODIUM CHLORIDE 0.9% 100 ML IV SCH ×3 (02:42→16:55)
[2016-11-25 04:13] LABS: HEMATOCRIT 32.6 % (34.6-47.8); HEMOGLOBIN 10.8 g/dL (11.7-16.4); WHITE BLOOD COUNT 10.6 x10^3/uL (3.4-10)
[2016-11-25 04:24] LABS: BLOOD UREA NITROGEN 18 mg/dL (7-18)
[2016-11-25] MEDS: LEVOTHYROXINE 112 MCG TABLET PO SCH (06:33)
[2016-11-25] MEDS: OMEPRAZOLE 20 MG CAPSULE.DR PO SCH (08:00)
[2016-11-25] MEDS: MULTIVITAMIN 1 TABLET PO SCH (09:03)
[2016-11-25] MEDS: GABAPENTIN 300 MG CAPSULE PO SCH ×3 (09:03→21:07)
[2016-11-25] MEDS: AMLODIPINE 5 MG TABLET PO SCH (09:03)
[2016-11-25] MEDS: LOSARTAN 50MG TABLET PO SCH ×2 (09:03→21:05)
[2016-11-25] MEDS: METHOCARBAMOL 500 MG TABLET PO PRN ×2 (09:06→16:54)
[2016-11-25] MEDS: SODIUM CHLORIDE FLUSH 10ML SYR IVF SCH ×2 (09:06→21:07)
[2016-11-25] MEDS: FLUTICASONE NASAL SPRAY 16GM NAS SCH (09:07)
[2016-11-25] MEDS: FLUOXETINE 20 MG CAPSULE PO SCH (21:06)
[2016-11-26] MEDS: MEROPENEM 1 GM in SODIUM CHLORIDE 0.9% 100 ML IV SCH ×3 (00:59→17:49)
[2016-11-26 04:00] VITALS: BP 106/82
[2016-11-26 04:37] LABS: HEMATOCRIT 33.8 % (34.6-47.8); HEMOGLOBIN 11.1 g/dL (11.7-16.4); WHITE BLOOD COUNT 10.5 x10^3/uL (3.4-10)
[2016-11-26] MEDS: LEVOTHYROXINE 112 MCG TABLET PO SCH (05:47)
[2016-11-26] MEDS: GABAPENTIN 300 MG CAPSULE PO SCH ×3 (08:36→20:53)
[2016-11-26] MEDS: AMLODIPINE 5 MG TABLET PO SCH (08:36)
[2016-11-26] MEDS: MULTIVITAMIN 1 TABLET PO SCH (08:36)
[2016-11-26] MEDS: FLUTICASONE NASAL SPRAY 16GM NAS SCH (08:37)
[2016-11-26] MEDS: OMEPRAZOLE 20 MG CAPSULE.DR PO SCH (08:37)
[2016-11-26] MEDS: LOSARTAN 50MG TABLET PO SCH ×2 (08:40→20:53)
[2016-11-26] MEDS: SODIUM CHLORIDE FLUSH 10ML SYR IVF SCH ×2 (08:40→20:52)
[2016-11-26] MEDS: METHOCARBAMOL 500 MG TABLET PO PRN (10:38)
[2016-11-26] MEDS: ONDANSETRON 2MG/ML, 2ML IVPush PRN (12:32)
[2016-11-26] MEDS: FLUOXETINE 20 MG CAPSULE PO SCH (20:52)
[2016-11-27] MEDS: MEROPENEM 1 GM in SODIUM CHLORIDE 0.9% 100 ML IV SCH ×3 (00:47→17:42)
[2016-11-27 04:00] VITALS: BP 115/66
[2016-11-27 04:31] LABS: HEMATOCRIT 31.8 % (34.6-47.8); HEMOGLOBIN 10.4 g/dL (11.7-16.4); WHITE BLOOD COUNT 10.7 x10^3/uL (3.4-10)
[2016-11-27] MEDS: LEVOTHYROXINE 112 MCG TABLET PO SCH (05:44)
[2016-11-27] MEDS: OMEPRAZOLE 20 MG CAPSULE.DR PO SCH (09:16)
[2016-11-27] MEDS: MULTIVITAMIN 1 TABLET PO SCH (09:17)
[2016-11-27] MEDS: GABAPENTIN 300 MG CAPSULE PO SCH ×3 (09:17→21:22)
[2016-11-27] MEDS: SODIUM CHLORIDE FLUSH 10ML SYR IVF SCH ×2 (09:18→21:00)
[2016-11-27] MEDS: LOSARTAN 50MG TABLET PO SCH ×2 (09:18→21:22)
[2016-11-27] MEDS: ENOXAPARIN 40 MG/0.4 ML SQ SCH (09:19)
[2016-11-27] MEDS: FLUTICASONE NASAL SPRAY 16GM NAS SCH (09:20)
[2016-11-27] MEDS: AMLODIPINE 5 MG TABLET PO SCH (09:20)
[2016-11-27] MEDS: METHOCARBAMOL 500 MG TABLET PO PRN (13:36)
[2016-11-27] MEDS: FLUOXETINE 20 MG CAPSULE PO SCH (21:23)
[2016-11-28] MEDS: MEROPENEM 1 GM in SODIUM CHLORIDE 0.9% 100 ML IV SCH ×2 (01:26→08:57)
[2016-11-28 02:15] VITALS: BP 123/60
[2016-11-28] MEDS: LEVOTHYROXINE 112 MCG TABLET PO SCH (05:46)
[2016-11-28 06:25] LABS: HEMATOCRIT 32.9 % (34.6-47.8); HEMOGLOBIN 10.7 g/dL (11.7-16.4); WHITE BLOOD COUNT 8.1 x10^3/uL (3.4-10)
[2016-11-28] MEDS: FLUTICASONE NASAL SPRAY 16GM NAS SCH (08:57)
[2016-11-28] MEDS: SODIUM CHLORIDE FLUSH 10ML SYR IVF SCH (08:58)
[2016-11-28] MEDS: LOSARTAN 50MG TABLET PO SCH (08:58)
[2016-11-28] MEDS: OMEPRAZOLE 20 MG CAPSULE.DR PO SCH (08:58)
[2016-11-28] MEDS: GABAPENTIN 300 MG CAPSULE PO SCH (08:58)
[2016-11-28] MEDS: AMLODIPINE 5 MG TABLET PO SCH (08:58)
[2016-11-28] MEDS: MULTIVITAMIN 1 TABLET PO SCH (08:58)
[2016-11-28] MEDS: ENOXAPARIN 40 MG/0.4 ML SQ SCH (08:58)
[2016-11-28 12:29] VITALS: BP 174/68
== END 2016-11-28 13:25 | disposition home or self-care (01) | DRG 91 ==
LOC: 4NOR 11:55 → ICU 16:04 → 4EST 11-28 05:53
PROVIDERS: ADMIT Neurological Surgery; ATTEND Neurological Surgery
PROC: 009U30Z Drainage of Spinal Canal with Drainage Device, Percutaneous Approach (ICD-10-PCS; principal; 2016-11-19)
PROC: B01B1ZZ Fluoroscopy of Spinal Cord using Low Osmolar Contrast (ICD-10-PCS; 2016-11-19)
DX: G97.82 Other postprocedural complications and disorders of nervous system (principal); J96.01 Acute respiratory failure with hypoxia; E87.1 Hypo-osmolality and hyponatremia; N39.0 Urinary tract infection, site not specified; G96.0 Cerebrospinal fluid leak; E87.6 Hypokalemia; B96.5 Pseudomonas (aeruginosa) (mallei) (pseudomallei) as the cause of diseases classified elsewhere; E03.9 Hypothyroidism, unspecified; Y83.8 Other surgical procedures as the cause of abnormal reaction of the patient, or of later complication, without mention of misadventure at the time of the procedure; Y82.8 Other medical devices associated with adverse incidents; G47.30 Sleep apnea, unspecified; R00.1 Bradycardia, unspecified; I10 Essential (primary) hypertension; M81.0 Age-related osteoporosis without current pathological fracture; Z79.899 Other long term (current) drug therapy; Z82.3 Family history of stroke; Z82.49 Family history of ischemic heart disease and other diseases of the circulatory system; Z83.3 Family history of diabetes mellitus; Z85.828 Personal history of other malignant neoplasm of skin; Z91.041 Radiographic dye allergy status; Z98.49 Cataract extraction status, unspecified eye; Z90.710 Acquired absence of both cervix and uterus; Z98.1 Arthrodesis status; Z88.8 Allergy status to other drugs, medicaments and biological substances; Z88.6 Allergy status to analgesic agent; Z88.1 Allergy status to other antibiotic agents
CPT/HCPCS: 36415; 62270; 70450; 71010; 77002; 78582; 80048; 81001; 83605; 84145; 84443; 84484; 85025; 85610; 87040; 87077; 87081; 87086; 87186; 93970; J0690; J0696; J1650; J2185; J2405; J2550; J3010; J3480; Q0162; A9540; A9558; C9898; J0360; J1200; J1940; J2920; J2930